=== PATIENT | female | born 1955 | race Caucasian/White ===

== ENCOUNTER 2017-04-04 10:41 | Outpatient (CLI) | payer BC | END 2017-04-04 20:38 | disposition home or self-care (01) | LOC: SMA 10:41 | PROVIDERS: ATTEND Family Medicine | DX: Z12.31 Encounter for screening mammogram for malignant neoplasm of breast (principal) | CPT/HCPCS: G0202 ==

== ENCOUNTER 2018-12-30 15:51 | Outpatient (CLI) | payer OTHER | END 2018-12-31 08:00 | disposition home or self-care (01) | LOC: SMA 15:51 | PROVIDERS: ATTEND Family Medicine | DX: Z12.31 Encounter for screening mammogram for malignant neoplasm of breast (principal) | CPT/HCPCS: 77067 ==